=== PATIENT | male | born 1990 | race Caucasian/White ===

== ENCOUNTER 2017-02-17 21:52 | Emergency (ER) | payer BC ==
[2017-02-17] MEDS ORDERED: Bacitracin Oint 1 GM U/D Packet TOP ONE (22:03)
[2017-02-17] MEDS ORDERED: Lidocaine 1% 20 ML MDV INJECT ONE (22:03)
[2017-02-17] MEDS ORDERED: Ibuprofen 800 MG Tab PO ONE (23:10)
--- NOTE | 2017-02-17 23:27 | EDM.PDOC ---
ED HPI GENERAL MEDICAL PROBLEM - General Chief Complaint: Laceration Stated Complaint: LT RING FINGER/LACERATION Time Seen by Provider: 02/17/17 22:15 Source of Information: Reports: Patient History Limitations: Reports: No Limitations - History of Present Illness INITIAL COMMENTS - FREE TEXT/NARRATIVE: HISTORY AND PHYSICAL: History of present illness: [Healthy 26-year-old male status post left ring finger laceration. Patient was making some alterations on multiple table reinstalling some felt when he actively cut his fingertip with a utility knife. No gross contamination of the wound. Patient denies possibility of foreign body. He has normal range of motion of all joints. Patient states tetanus is up-to-date. His mother is present and confirms this.. Wound happened just prior to arrival.] Review of systems: As per history of present illness and below otherwise all systems reviewed and negative. Past medical history: As per history of present illness and as reviewed below otherwise noncontributory. Surgical history: As per history of present illness and as reviewed below otherwise noncontributory. Social history: No reported history of drug or alcohol abuse. Family history: As per history of present illness and as reviewed below otherwise noncontributory. HEENT: Normocephalic, atraumatic, pupils normal and symmetrical, supple neck, no meningismus, normal color Lungs: Normal and symmetrical chest wall excursion bilateral with no tachypnea or increased work of breathing, grossly normal chest exam Heart: No tachycardia in triage Abdomen: Normal-appearing, nondistended, no visible mass or asymmetry Pelvis: Normal-appearing Genitourinary: Deferred Rectal exam: Deferred Extremities: Atraumatic, normal use and range of motion, no visible evidence of gross neurovascular compromise Neuro: Awake, alert, oriented. Normal and appropriate mental status. Cranial nerves grossly unremarkable. Motor function normal. Nonfocal neurologic exam. Diagnostics: [] Therapeutics: [Procedure: Repair of 2.4 cm wound by MARCUS Mae Digital block performed by . Sterile prep with Betadine base of the left ring finger. 1% lidocaine injected 1 mL per side with good anesthesia. Wound irrigated extensively and Hibiclens scrub. Have I'm tap water irrigation hemostatic after direct pressure with sterile compress.. 7 interrupted 5-0 Prolene sutures used to tightly approximate the wound margins. Hemostatic on reevaluation. Patient tolerated well without complication.] Impression: [] Plan: [Simple laceration left ring fingertip with flap but good blood flow distally. No nailbed involvement. No evidence of fracture or flexor tendon involvement . Tetanus up-to-date. Uncomplicated wound repair which patient tolerated well x- ray not clinically indicated. He will follow-up with PCP in 2 days for wound check in 10 days for suture removal. Patient does not want narcotic pain control and is aware to take Tylenol and Motrin as needed. Strict return precautions given] Definitive disposition and diagnosis as appropriate pending reevaluation and review of above. left ring finger Pain Score (Numeric/FACES): 6 - Related Data Allergies Allergy/AdvReac Type Severity Reaction Status Date / Time No Known Allergies Allergy Verified 02/17/17 21:57 Home Meds: Home Meds . [No Known Home Meds] 04/20/15 [History] Past Medical History - Past Health History Medical/Surgical History: Denies Medical/Surgical History - Past Surgical History HEENT Surgical History: Reports: Oral Surgery Social & Family History - Family History Family Medical History: Noncontributory - Tobacco Use Smoking Status *Q: Current Every Day Smoker Years of Tobacco use: 5 Packs/Tins Daily: 1 - Alcohol Use Days Per Week of Alcohol Use: 3 Number of Drinks Per Day: 4 Total Drinks Per Week: 12 - Recreational Drug Use Recreational Drug Use: No ED ROS GENERAL - Review of Systems Review Of Systems: See Below (History of present illness) ED EXAM, SKIN/RASH Exam: See Below (History of present illness) Course - Vital Signs Last Recorded V/S: Last Vital Signs Temp 36.6 C 02/17/17 21:52 Pulse 82 02/17/17 21:52 Resp 18 02/17/17 21:52 BP 152/89 H 02/17/17 21:52 Pulse Ox 98 02/17/17 21:52 - Orders/Labs/Meds Meds: Medications Discontinued Medications Generic Name Dose Route Start Last Admin Trade Name Erendira PRN Reason Stop Dose Admin Bacitracin 1 dose 02/17/17 22:03 02/17/17 22:47 Bacitracin Oint 1 Gm TOP 02/17/17 22:04 1 dose ONETIME ONE Administration Ibuprofen 800 mg 02/17/17 23:10 02/17/17 23:21 Motrin PO 02/17/17 23:11 800 mg ONETIME ONE Administration Lidocaine HCl 20 ml 02/17/17 22:03 02/17/17 22:47 Xylocaine 1% INJECT 02/17/17 22:04 20 ml ONETIME ONE Administration Departure - Departure Time of Disposition: 23:24 Disposition: Home, Self-Care 01 Condition: Good Clinical Impression: Laceration of finger of left hand - Discharge Information Instructions: Stitches, [place], or Adhesive Wound Closure, [id number] Referrals: PCP,None [Primary Care Provider] - Forms: ED Department Discharge Additional Instructions: Your laceration has been closed with 7 sutures. Apply antibiotic ointment for the first 2 days and keep covered with a clean dressing or Band-Aid. Wear a glove if you do any work that would put your wound at risk for getting dirty. As you described your tetanus shot is up-to-date. Verify this with your doctor. If the wound is sore take 800 mg of ibuprofen every 6 hours and he can also take Tylenol every 4 hours if needed as well. Follow-up with your doctor in 2 days for a wound check, 10 days for suture removal, and return immediately for signs of infection.
[2017-02-17 23:47] VITALS: BP 123/64
== END 2017-02-17 23:35 | disposition home or self-care (01) ==
LOC: MW.ED 21:52
DX: S61.215A Laceration without foreign body of left ring finger without damage to nail, initial encounter (principal); F17.210 Nicotine dependence, cigarettes, uncomplicated; W26.0XXA Contact with knife, initial encounter
CPT/HCPCS: 12001; 99282; A9270

== ENCOUNTER 2018-11-16 07:52 | Emergency (ER) | payer BC ==
[2018-11-16 08:05] VITALS: BP 135/93
[2018-11-16] MEDS ORDERED: Bupivacaine 0.25% 10 ML SDV INJECT ONE (08:05)
--- NOTE | 2018-11-16 08:15 | EDM.PDOC ---
<Kevin Ramírez - Last Filed: 11/16/18 08:34> ED HPI GENERAL MEDICAL PROBLEM - General Chief Complaint: Upper Extremity Injury/Pain Stated Complaint: SMASHED LEFT INDEX FINGER Time Seen by Provider: 11/16/18 08:37 Source of Information: Reports: Patient - History of Present Illness INITIAL COMMENTS - FREE TEXT/NARRATIVE: 27 y/o male here for left index finger trauma. Patient states he was at home and accidentally slammed the door on his left index finger. Rates pain 10/10 when moving finger. Feels some pressure. No active bleeding. Sensation intact. He is able to wiggle fingers. Some limited range of motion on DIP joint. Up to date with tetanus. No allergies to antibiotics. left 1st digit Pain Score (Numeric/FACES): 8 - Related Data Allergies Allergy/AdvReac Type Severity Reaction Status Date / Time No Known Allergies Allergy Verified 11/16/18 08:04 Home Meds: Home Meds Sulfamethoxazole/Trimethoprim [Bactrim 400-80 MG] 1 each PO BID 5 Days #10 tablet 11/16/18 [Rx] Past Medical History - Past Health History Medical/Surgical History: Denies Medical/Surgical History HEENT History: Reports: None Cardiovascular History: Reports: None Respiratory History: Reports: None Gastrointestinal History: Reports: None Genitourinary History: Reports: None Musculoskeletal History: Reports: None Neurological History: Reports: None Psychiatric History: Reports: None Endocrine/Metabolic History: Reports: None Hematologic History: Reports: None Immunologic History: Reports: None Oncologic (Cancer) History: Reports: None Dermatologic History: Reports: None - Infectious Disease History Infectious Disease History: Reports: None - Past Surgical History Head Surgeries/Procedures: Reports: None HEENT Surgical History: Reports: Oral Surgery Cardiovascular Surgical History: Reports: None Respiratory Surgical History: Reports: None GI Surgical History: Reports: None Male Surgical History: Reports: None Endocrine Surgical History: Reports: None Neurological Surgical History: Reports: None Musculoskeletal Surgical History: Reports: None Oncologic Surgical History: Reports: None Dermatological Surgical History: Reports: None Social & Family History - Family History Family Medical History: Noncontributory - Tobacco Use Smoking Status *Q: Current Every Day Smoker Years of Tobacco use: 8 Packs/Tins Daily: 0.3 - Caffeine Use Caffeine Use: Reports: None - Recreational Drug Use Recreational Drug Use: Yes Recreational Drug Type: Reports: Marijuana/Hashish Review of Systems - Review of Systems Review Of Systems: ROS reveals no pertinent complaints other than HPI. ED EXAM, GENERAL - Physical Exam Exam: See Below Extremities: Other (left index finger- small superficial laceration on left index finger near DIP joint. No active bleeding. Sensation intact. Limited range of motion due to pain. Able to wigle fingers.) Course - Vital Signs Text/Narrative:: administered digital block on left index finger with lidocaine/bupivicaine. Last Recorded V/S: Last Vital Signs Temp 97.1 F 11/16/18 08:03 Pulse 93 11/16/18 08:03 Resp 18 11/16/18 08:03 BP 135/93 H 11/16/18 08:03 Pulse Ox 96 11/16/18 08:03 - Orders/Labs/Meds Orders: Active Orders 24 hr Category Date Time Status Fingers Second Digit Lt F1 [CR] Stat Exams 11/16/18 07:59 Taken Meds: Medications Discontinued Medications Generic Name Dose Route Start Last Admin Trade Name Erendira PRN Reason Stop Dose Admin Bacitracin 1 dose 11/16/18 08:31 11/16/18 08:41 Bacitracin Oint 1 Gm TOP 11/16/18 08:32 1 dose ONETIME ONE Administration Bupivacaine HCl 10 ml 11/16/18 08:05 11/16/18 08:40 Sensorcaine-Mpf 0.25% INJECT 11/16/18 08:06 10 ml ONETIME ONE Administration Lidocaine HCl 10 ml 11/16/18 08:05 11/16/18 08:40 Xylocaine-Mpf 1% INJECT 11/16/18 08:06 10 ml ONETIME ONE Administration Departure - Departure Time of Disposition: 08:36 Disposition: Home, Self-Care 01 Clinical Impression: Contusion, finger - Discharge Information *PRESCRIPTION DRUG MONITORING PROGRAM REVIEWED*: Not Applicable *COPY OF PRESCRIPTION DRUG MONITORING REPORT IN PATIENT JENSEN: Not Applicable Prescriptions: Sulfamethoxazole/Trimethoprim [Bactrim 400-80 MG] 1 each PO BID 5 Days #10 tablet Instructions: Crush Injury of the Hand, [id number] Referrals: Freddie Robert MD [Primary Care Provider] - Forms: ED Department Discharge - My Orders Last 24 Hours: My Active Orders 11/16/18 07:59 Fingers Second Digit Lt F1 [CR] Stat - Assessment/Plan Last 24 Hours: My Active Orders 11/16/18 07:59 Fingers Second Digit Lt F1 [CR] Stat <Abeba Kessler - Last Filed: 11/16/18 08:53> ED HPI GENERAL MEDICAL PROBLEM - History of Present Illness INITIAL COMMENTS - FREE TEXT/NARRATIVE: I have evaluated patient and agree with the above workup and treatment.
[2018-11-16] MEDS ORDERED: Bacitracin Oint 1 GM U/D Packet TOP ONE (08:31)
--- NOTE | 2018-11-16 08:57 | CR ---
EXAMINATION: Left hand second digit HISTORY: Injury COMPARISON: None TECHNIQUE: 3 views FINDINGS/IMPRESSION: There is no acute osseous abnormality, dislocation, or fracture. Bone mineralization and joint spaces are preserved.
== END 2018-11-16 08:48 | disposition home or self-care (01) ==
LOC: MW.ED 07:52
DX: S61.211A Laceration without foreign body of left index finger without damage to nail, initial encounter (principal); F17.210 Nicotine dependence, cigarettes, uncomplicated; Z98.890 Other specified postprocedural states; W23.1XXA Caught, crushed, jammed, or pinched between stationary objects, initial encounter
CPT/HCPCS: 64450; 73140; 99283; J2001; J3490

== ENCOUNTER 2019-07-13 08:05 | Day surgery (SDC) | payer BC ==
[~2019-07-13 08:05] MED LIST: Lactated Ringers 1,000 ML IV SCH; Sodium Chloride 0.9% 10 ML SDV IV PRN; Sodium Chloride 0.9% 10 ML Syringe FLUSH PRN; Sodium Chloride 0.9% 2.5 ML Syringe FLUSH PRN; ceFAZolin 1 GM in Premix Bag 1 BAG IV ONE
[2019-07-13] MEDS ORDERED: Ondansetron 4 MG/2 ML SDV ONE (08:32)
[2019-07-13] MEDS ORDERED: fentaNYL 100 MCG/2 ML SDV ONE (08:32)
[2019-07-13] MEDS ORDERED: Midazolam 1 MG/ML 2 ML SDV ONE (08:32)
[2019-07-13] MEDS ORDERED: Propofol 200 MG/20 ML SDV ONE (08:32)
[2019-07-13] MEDS ORDERED: Scopolamine 1.5 MG Transdermal Patch TRDERM PRN (08:33)
[2019-07-13] MEDS ORDERED: Rocuronium 100 MG/10 ML Syringe ONE (08:33)
[2019-07-13] MEDS ORDERED: Morphine 10 MG/ML Syringe ONE (08:33)
[2019-07-13] MEDS ORDERED: Ketorolac 30 MG/ML SDV ONE (08:33)
--- NOTE | 2019-07-13 08:33 | PCM.PREANE ---
Preanesthetic Assessment - Anesthesia/Transfusion/Family Hx Anesthesia History: Prior Anesthesia Without Reaction Family History of Anesthesia Reaction: No Transfusion History: No Prior Transfusion(s) - Review of Systems General: No Symptoms Pulmonary: No Symptoms Cardiovascular: No Symptoms Gastrointestinal: No Symptoms Neurological: No Symptoms Other: Reports: None - Physical Assessment NPO Status Date: 07/12/19 Height: 6 ft Weight: 67.585 kg ASA Class: 2 Mental Status: Alert & Oriented x3 Airway Class: Mallampati = 2 Dentition: Reports: Broken Tooth/Teeth (central maxillary incisor) ROM/Head Extension: Full Lungs: Clear to Auscultation, Normal Respiratory Effort Cardiovascular: Regular Rate, Regular Rhythm - Allergies Allergies/Adverse Reactions: Allergies Allergy/AdvReac Type Severity Reaction Status Date / Time No Known Allergies Allergy Verified 07/09/19 13:59 - Blood Blood Available: No - Anesthesia Plan Pre-Op Medication Ordered: None - Acknowledgements Anesthesia Type Planned: General Anesthesia Pt an Appropriate Candidate for the Planned Anesthesia: Yes Alternatives and Risks of Anesthesia Discussed w Pt/Guardian: Yes Pt/Guardian Understands and Agrees with Anesthesia Plan: Yes PreAnesthesia Questionnaire - Past Health History Medical/Surgical History: Denies Medical/Surgical History HEENT History: Reports: None Cardiovascular History: Reports: None Respiratory History: Reports: Other (See Below) Other Respiratory History: 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 Gastrointestinal History: Reports: None Genitourinary History: Reports: None Musculoskeletal History: Reports: Fracture Other Musculoskeletal History: hx fx wrist Neurological History: Reports: None Psychiatric History: Reports: None Endocrine/Metabolic History: Reports: None Hematologic History: Reports: None Immunologic History: Reports: None Oncologic (Cancer) History: Reports: None Dermatologic History: Reports: None - Infectious Disease History Infectious Disease History: Reports: None - Past Surgical History Head Surgeries/Procedures: Reports: None HEENT Surgical History: Reports: Oral Surgery Cardiovascular Surgical History: Reports: None Respiratory Surgical History: Reports: None GI Surgical History: Reports: None Male Surgical History: Reports: None Endocrine Surgical History: Reports: None Neurological Surgical History: Reports: None Musculoskeletal Surgical History: Reports: None Oncologic Surgical History: Reports: None Dermatological Surgical History: Reports: None - SUBSTANCE USE Smoking Status *Q: Current Every Day Smoker Tobacco Use Within Last Twelve Months: Cigarettes - HOME MEDS Home Medications: Home Meds . [No Known Home Meds] 07/09/19 [History] - CURRENT (IN HOUSE) MEDS Current Meds: Current Medications Lactated Ringer's (Ringers, Lactated) 1,000 mls @ 125 mls/hr IV ASDIRECTED MARCELA Sodium Chloride (Saline Flush) 10 ml FLUSH ASDIRECTED PRN PRN Reason: Keep Vein Open Sodium Chloride (Saline Flush) 2.5 ml FLUSH ASDIRECTED PRN PRN Reason: Keep Vein Open Sodium Chloride (Normal Saline) 10 ml IV ASDIRECTED PRN PRN Reason: IV Use Discontinued Medications Cefazolin Sodium/Dextrose 1 gm (/ Premix) 50 mls @ 100 mls/hr IV ONETIME ONE Stop: 07/13/19 06:29
[2019-07-13] MEDS ORDERED: Scopolamine 1.5 MG Transdermal Patch ONE (08:34)
[2019-07-13] MEDS ORDERED: Bupivacaine 0.5% 30 ML SDV ONE (11:42)
[2019-07-13] MEDS ORDERED: ceFAZolin 1 GM Vial ONE (11:53)
[2019-07-13] MEDS ORDERED: Glycopyrrolate 0.2 MG/ML SDV ONE (11:53)
[2019-07-13] MEDS ORDERED: Sodium Chloride 0.9% 20 ML ONE (11:53)
[2019-07-13] MEDS ORDERED: Sugammadex Sodium 200 MG/2 ML VIAL ONE (11:56)
[2019-07-13] MEDS ORDERED: Morphine 10 MG/ML Syringe IVPUSH ONE (13:03)
--- NOTE | 2019-07-13 13:59 | PCM.OPNOTE ---
- General Post-Op/Procedure Note Date of Surgery/Procedure: 07/13/19 Operative Procedure(s): Laparoscopic cholecystectomy, umbilical hernia repair Findings: 3mm umbilical hernia containing incarcerated pre-peritoneal fat Pre Op Diagnosis: Umbilical hernia, biliary dyskinesia Post-Op Diagnosis: same Anesthesia Technique: General ET Tube Primary Surgeon: Hailey Jimenez Fluid Replacement, Intraop: 1,400 Output, Urine Amount: 400 EBL in mLs: 15 Condition: Good
[2019-07-13] MEDS ORDERED: oxyCODONE 5 MG Tab PO ONE (15:09)
--- NOTE | 2019-07-13 15:11 | PCM.POSTAN ---
POST ANESTHESIA ASSESSMENT - MENTAL STATUS Mental Status: Alert, Oriented - VITAL SIGNS Vital Signs: Last Vital Signs Temp 97.2 F 07/13/19 14:01 Pulse 49 L 07/13/19 14:41 Resp 12 07/13/19 14:41 BP 105/73 07/13/19 14:41 Pulse Ox 98 07/13/19 14:41 - RESPIRATORY Respiratory Status: Respiratory Rate WNL, Airway Patent, O2 Saturation Stable - CARDIOVASCULAR CV Status: Pulse Rate WNL, Blood Pressure Stable - GASTROINTESTINAL GI Status: No Symptoms - POST OP HYDRATION Hydration Status: Adequate & Stable
--- NOTE | 2019-07-13 16:19 | OR ---
SURGEON: HAILEY NEFF MD DATE OF PROCEDURE: 07/13/2019 PREOPERATIVE DIAGNOSES: 1. Umbilical hernia, incarcerated. 2. Biliary dyskinesia. POSTOPERATIVE DIAGNOSES: 1. Umbilical hernia, incarcerated. 2. Biliary dyskinesia. PROCEDURES PERFORMED: 1. Umbilical hernia repair. 2. Laparoscopic cholecystectomy. PRIMARY SURGEON: Hailey Neff MD. MOTO MIX OPERATOR: patient support assistant: Dr. Maldonado Hagan, resident director. ANESTHESIA: General endotracheal anesthesia. FLUIDS: 1400 mL of crystalloid. ESTIMATED BLOOD LOSS: 15 mL. URINE OUTPUT: 400 mL. FINDINGS: Normal-appearing gallbladder. 3 mm incarcerated umbilical hernia containing preperitoneal fat. COMPLICATIONS: None. INDICATIONS: The patient is a 28-year-old male who presents with biliary dyskinesia. His ejection fraction is 3%. On physical exam, he is noted to have a small incarcerated umbilical hernia. The decision was made to repair this hernia at the same time that I remove his gallbladder. I explained the umbilical repair, which will be done open. I explained the laparoscopic, possible open, approach to cholecystectomy. Should I be unable to perform it safely, I would convert to open. The patient and I discussed the expected perioperative course as well as the risks including bleeding, infection, or damage to surrounding structures. He verbalized understanding and wishes to proceed. PROCEDURE IN DETAIL: The patient was brought into the OR and placed on the OR table in supine position. A time-out was completed verifying the patient's name, age, date of , allergies, and procedure to be performed. General endotracheal anesthesia was induced. The left arm was tucked to the patient's side and a Jaime catheter placed. The abdomen was prepped and draped in usual standard fashion. The patient's umbilical hernia appeared to be just superior to the umbilical stalk, so I anesthetized the supraumbilical fold with 0.5% Marcaine plain. A curvilinear incision was made along the supraumbilical fold using a 15 blade. Cautery was used to dissect down to the subcutaneous fat layer. I immediately noticed a small fat-containing hernia sac. I dissected this out using Metzenbaum scissors. The dissection was carried down to the level of the fascia. The hernia sac and small amount of preperitoneal fat were excised. Once it was cleared away from the surrounding tissue, sent to pathology labeled as hernia sac. The supraumbilical defect was 3 mm in size. In order to place my Ira trocar through this, I opened it up on either side. Entry in the abdomen was palpated digitally. A 12 mm Ira trocar was inserted in the abdomen and the abdomen insufflated. A 5 mm 30-degree scope was inserted. I inspected the area underneath my initial trocar placement. No damage to surrounding structures was noted. The patient was placed in reverse Trendelenburg position and airplaned slightly to the left. 5 mm trocars placed in the following locations under direct visualization; one in the epigastric area, one in the right flank, and one 2 fingerbreadths below the right subcostal margin in the midclavicular line. The dome of the gallbladder was grasped with an atraumatic grasper and elevated. There were no adhesions or signs of inflammation. Overall, the gallbladder looked grossly normal. Using hook cautery and blunt dissection, I cleared away all the preperitoneal attachments along the cystic duct and artery. I then cleared away one-third of the proximal cystic plate. Once my critical view was achieved, I triply clipped and ligated my cystic duct and doubly clipped and ligated my cystic artery. The remainder of the gallbladder attachments to the gallbladder fossa were taken down using electrocautery. While manipulating the gallbladder itself, the clip on the cystic duct fell off and bile was spilled into the abdomen. The gallbladder was removed from the gallbladder fossa and placed in an Endo Catch bag and removed through the supraumbilical port site. The Ira trocar was replaced, and I inspected my operative field. 1 L of normal saline was used to irrigate the area until it ran clear. This was all suctioned out. I then removed the trocars under direct visualization. While doing so, the right lateral trocar started bleeding. The wound was packed with a Ray-Jordon from the outside and pressure was held internally. By doing this, the bleeding stopped. The remainder of the trocars were removed and hemostasis was achieved. Prior to removing everything, I had reinspected my operative field. It appeared hemostatic and the clips appeared to be in good position. There was no bile leak from my operative field. I then removed the 12 mm Ira trocar. I closed my incision site using interrupted 0 Ethibond sutures. The subcutaneous fat layer was closed with interrupted 3-0 Vicryl suture. The skin was closed with a running 4-0 Monocryl stitch. The epigastric and right subcostal 5 mm trocar sites were closed with interrupted 4-0 Vicryl sutures. The right flank port was closed with a deep 3-0 Vicryl stitch and the skin was closed with a 3-0 Vicryl suture as well. Pressure was held at the area and it appeared to be hemostatic. Steri-Strips and sterile dressings were applied. The patient tolerated the procedure well and was transferred to the PACU in stable condition. JOSEPH CARR /[id number] TRESSA
--- NOTE | 2019-07-13 16:30 | PCM48HPAN ---
Post Anesthesia Note - EVALUATION WITHIN 48HRS OF ANESTHETIC Vital Signs in Normal Range: Yes Patient Participated in Evaluation: Yes Respiratory Function Stable: Yes Airway Patent: Yes Cardiovascular Function Stable: Yes Hydration Status Stable: Yes Pain Control Satisfactory: Yes Nausea and Vomiting Control Satisfactory: Yes Mental Status Recovered: Yes Vital Signs: Last Vital Signs Temp 97.5 F 07/13/19 14:50 Pulse 45 L 07/13/19 15:19 Resp 12 07/13/19 15:19 BP 103/67 07/13/19 15:19 Pulse Ox 96 07/13/19 15:19
[2019-07-13 16:42] VITALS: BP 133/66; PULSE 51
== END 2019-07-13 16:45 | disposition home or self-care (01) ==
LOC: MW.SDS 08:05
PROVIDERS: ATTEND Surgery
DX: K81.1 Chronic cholecystitis (principal); K42.0 Umbilical hernia with obstruction, without gangrene; F17.210 Nicotine dependence, cigarettes, uncomplicated; Z79.899 Other long term (current) drug therapy
CPT/HCPCS: 47562; 49587; 88302; 88304; A9270; J0131; J0690; J1885; J2250; J2270; J2405; J2704; J3010; J3490; J7120; 00790

== ENCOUNTER 2023-06-09 14:15 | Emergency (ER) | payer BC ==
[2023-06-09] MEDS ORDERED: Morphine 4 MG/ML Syringe IVPUSH ONE (14:24)
[2023-06-10 07:37] VITALS: BP 115/70; PULSE 76
== END 2023-06-09 16:15 | disposition home or self-care (01) ==
LOC: MW.ED 14:15
DX: S62.025A Nondisplaced fracture of middle third of navicular [scaphoid] bone of left wrist, initial encounter for closed fracture (principal); S80.12XA Contusion of left lower leg, initial encounter; W11.XXXA Fall on and from ladder, initial encounter
CPT/HCPCS: 29125; 70450; 73110; 73590; 96374; 99284; J2270